=== PATIENT | female | born 1950 ===

== ENCOUNTER 2018-04-05 12:45 | Inpatient (IN) | payer OTHER ==
[~2018-04-05] VITALS: Ht 157.5 cm; Wt 81.6 kg
[~2018-04-05 12:45] MED LIST: COZAAR50 MG PO; DIOVAN HCT 320/1 TAB; GLUCOPHAGE XR500 MG PO; NABUMETONE500 MG PO; PERCOCET 5/3251 TAB PO; PROZAC10 MG PO; SYNTHROID88 MCG PO
== END 2018-04-14 11:10 | disposition home or self-care (01) | DRG 470 ==
LOC: O/R 04-11 08:32 → SURH 04-11 08:32
PROVIDERS: ADMIT Orthopaedic Surgery
PROC: 0SBC0ZZ Excision of Right Knee Joint, Open Approach (ICD-10-PCS; 2018-04-11)
PROC: 0T9B70Z Drainage of Bladder with Drainage Device, Via Natural or Artificial Opening (ICD-10-PCS; 2018-04-11)
PROC: 0SRC0J9 Replacement of Right Knee Joint with Synthetic Substitute, Cemented, Open Approach (ICD-10-PCS; principal; 2018-04-11 13:30)
DX: M17.11 Unilateral primary osteoarthritis, right knee (principal); D62 Acute posthemorrhagic anemia; E03.9 Hypothyroidism, unspecified; E11.9 Type 2 diabetes mellitus without complications; Z79.4 Long term (current) use of insulin; I10 Essential (primary) hypertension; G47.33 Obstructive sleep apnea (adult) (pediatric); E66.01 Morbid (severe) obesity due to excess calories; F32.9 Major depressive disorder, single episode, unspecified

== ENCOUNTER 2021-07-10 13:04 | Outpatient (CLI) | payer OTHER | END 2021-07-10 15:33 | disposition home or self-care (01) | LOC: LAB 13:04 | PROVIDERS: ATTEND Internal Medicine Hematology & Oncology | DX: D45 Polycythemia vera (principal); D75.89 Other specified diseases of blood and blood-forming organs ==

== ENCOUNTER → 2021-07-22 | Outpatient (CLI) | payer OTHER | END | disposition home or self-care (01) | LOC: NUCLEAR 09:39 | PROVIDERS: ATTEND Internal Medicine Hematology & Oncology | DX: D75.1 Secondary polycythemia (principal); R16.0 Hepatomegaly, not elsewhere classified | CPT/HCPCS: 74160; A9541 ==